=== PATIENT | female | born 1975 | race Caucasian/White ===

== ENCOUNTER 2021-12-05 11:12 | Emergency (ER) | payer MEDICAID, SELFPAY ==
[2021-12-05 11:23] VITALS: BP 114/35; PULSE 95; RESP 20; TEMP 36.6; O2SAT 96; BMI 40.4
--- NOTE | 2021-12-05 11:36 | ED.GENADULT ---
HPI - General Adult General Chief complaint: Allergic Reaction Stated complaint: Allergic reaction, rash all over Time Seen by Provider: 12/05/21 11:12 History of Present Illness HPI narrative: Tommy is a 46-year-old female patient presents emergency department via POV with complaints of rash that began beneath the right axilla without known exposure but now is noted beneath bilateral axilla, underneath bilateral breasts, across her abdomen, and at the base of her neck. Exact timeline of symptoms is unknown. Patient reports that she has been seen and evaluated for this complaint approximately 1 week prior and was given triamcinolone topical cream to apply. She reports initially the symptoms improved. However, she reports that the symptoms have worsened with the spreading as previously noted. She denies shortness of breath, lip or tongue swelling, or chest pain. She denies nausea, vomiting, or diarrhea. She denies abdominal pain. She reports that the rash is itchy. She denies a blister appearance. The patient denies similar symptoms in any close contacts. The patient has had no travel exposure. The patient also denies any new creams, soaps, detergents, or food exposures. See nursing notes for complete details. Related Data Home Medications Medication Instructions Recorded Confirmed duloxetine 30 mg capsule,delayed 60 mg PO QDAY cap 11/25/21 11/25/21 release lamotrigine 100 mg tablet 50 mg PO QDAY tab 11/25/21 11/25/21 spironolactone 50 mg tablet 150 mg PO QDAY tab 11/25/21 11/25/21 trazodone 100 mg tablet 300 mg PO QDAY tab 11/25/21 11/25/21 zolpidem 5 mg tablet 5 mg PO .HS tab 11/25/21 11/25/21 Previous Rx's Medication Instructions Recorded triamcinolone acetonide 0.1 % 1 applic TOPICAL BID #30 g 11/25/21 topical cream prednisone 10 mg tablets in a dose See Rx Instructions .ROUTE 12/05/21 pack .COMPLEX #21 ea Allergies Allergy/AdvReac Type Severity Reaction Status Date / Time house dust Allergy Verified 12/05/21 11:22 dogs Allergy Mild Uncoded 12/05/21 11:22 pine trees Allergy Uncoded 12/05/21 11:22 Review of Systems Const: Denies: fever, chills, fatigue or malaise ENMT: Reports: nasal congestion; Denies: throat pain, neck pain, swelling of lips/tongue or ear pain Cardio: Denies: chest pain, palpitations, shortness of breath with exertion or shortness of breath when lying down Resp: Denies: shortness of breath or wheezing GI: Denies: abdominal pain, nausea or vomiting Musculo: Denies: neck pain Integ/Breast: Reports: rash and itching Neuro: Denies: headache Psych: Denies: anxiety or mood swings Endo: Denies: fatigue Allergy/Immuno: Denies: wheezing PFSH PFSH Social History Smoking Status: Never smoker Do you use any of these nicotine containing products: Vaping Products Second hand tobacco smoke exposure: No How often do you have a drink containing alcohol: 2-4 times a month How often do you have six or more drinks on one occasion: Weekly AUDIT-C Alcohol total score: 5 Non-prescribed substance use: marijuana (any form) Exam Const: Vital Signs, click to edit/add: Vital Signs - 24 hr 12/05/21 11:23 12/05/21 12:30 12/05/21 12:42 Temperature 97.8 F Pulse Rate [Pulse Oximeter] 95 67 66 Respiratory Rate 20 Blood Pressure [Ri ght Upper Arm] 114/35 L 119/79 118/79 Pulse Oximetry 96 98 98 Documenting provider has reviewed patient's vital signs: yes Common normals: no apparent distress, oriented x3, healthy appearing and alert General appearance: cooperative and well developed Nutritional appearance: obese Orientation/consciousness: Yes awake, Yes oriented to person, Yes oriented to place and Yes oriented to time HENMT: Common normals: normocephalic, head/scalp atraumatic, moist oral mucous membranes and oropharynx normal Head and scalp: normocephalic and atraumatic Neck & C-Spine: Common normals: full ROM and no lymphadenopathy Lymph: Lymphatic: no lymphadenopathy noted Resp: Common normals: normal respiratory effort, no use of accessory muscles and clear to auscultation bilaterally Auscultation: clear to auscultation bilaterally Cardio: Common normals: regular rate, regular rhythm, S1 normal heart sound and S2 normal heart sound Rate: regular rate Rhythm: regular rhythm Heart sounds: S1 normal and S2 normal Extremity: Common normals: normal to inspection, full ROM and no clubbing, cyanosis or edema Neuro: Common normals: oriented x3, moves all extremities and no focal motor deficits Sensorium/orientation: awake, alert, oriented to person, oriented to place and oriented to time Gait (neuro): normal gait Psych: Common normals: mental status grossly normal, thought process normal, cooperative, affect normal, speech normal and activity/motor behavior normal Speech: normal speech Thought process: normal thought process Skin: Narrative: No obvious herald patch. Skin images (female): 1. erythematous, blanchable macular rash 2. erythematous, blanchable macular rash 3. erythematous, blanchable macular rash 4. erythematous, blanchable macular rash Course Reevaluation(s) Reevaluation #1: Patient noted to have improvement after treatment. Plan for discharge and close outpatient follow-up as needed. Vital Signs Vital signs: Initial Vital Signs Temperature 97.8 F 12/05/21 11:23 Temperature Source Temporal Artery Scan 12/05/21 11:23 Pulse Rate 95 12/05/21 11:23 Pulse Rhythm 12/05/21 11:23 Respiratory Rate 20 12/05/21 11:23 Blood Pressure 114/35 L 12/05/21 11:23 Blood Pressure Mean 61 12/05/21 11:23 Pulse Oximetry 96 12/05/21 11:23 Oxygen Delivery Method 12/05/21 11:23 Vital Signs Temperature 97.8 F 12/05/21 11:23 Pulse Rate 95 12/05/21 11:23 Respiratory Rate 20 12/05/21 11:23 Blood Pressure 114/35 L 12/05/21 11:23 Pulse Oximetry 96 12/05/21 11:23 Temperature 97.8 F 12/05/21 11:23 Pulse Rate 66 12/05/21 12:42 Respiratory Rate 20 12/05/21 11:23 Blood Pressure 118/79 12/05/21 12:42 Pulse Oximetry 98 12/05/21 12:42 Medical Decision Making Lab Data Labs: Lab Results 12/05/21 Range/Units 11:46 SARS-CoV-2 (PCR) Negative SARS-CoV-2 (Negative) Discharge Plan Discharge Clinical Impression: Dermatitis Patient Disposition: Home, Self-Care Condition: Improved Instructions: Dermatitis (ED) Additional Instructions: Thank you for choosing [facility] for your care today. Wash, as desired, at least every other day. Please make sure to get the area dry after washing. Avoid perfumes, creams, or deodorants while outbreak present. The patient is encouraged to use OTC Benadryl, or substitute, per package directions, scheduled for the next 24-48hrs. The patient is advised to also take Pepcid, or substitute, one tab daily. The patient is advised may use ice or cool shower, as needed, for symptom control. Finally, the patient is given steroids and is advised to start them tomorrow. In addition, patient is given anticipatory guidance regarding signs and symptoms of worsening condition. I recommend calling primary care for follow-up in the next 3-5 days. If new or worsening symptoms develop or you have any concerns in the meantime, please call your primary care clinic or return to the ER for re-evaluation. Prescriptions: New prednisone 10 mg tablets,dose pack See Rx Instructions .ROUTE .COMPLEX Qty: 21 0RF Rx Instructions: orally per package directions No Action trazodone 100 mg tablet 300 mg PO QDAY 0RF Label Comments: TAKE 2 TO 3 TABLETS BY MOUTH AT BEDTIME NEEDED FOR SLEEP lamotrigine 100 mg tablet 50 mg PO QDAY 0RF Label Comments: TAKE 1 TABLET BY MOUTH EVERY MORNING zolpidem 5 mg tablet 5 mg PO .HS 0RF Label Comments: TAKE 1 TABLET BY MOUTH AT BEDTIME NEEDED FOR SLEEP duloxetine 30 mg capsule,delayed release(DR/EC) 60 mg PO QDAY 0RF spironolactone 50 mg tablet 150 mg PO QDAY 0RF triamcinolone acetonide 0.1 % cream 1 applic topical BID Qty: 30 0RF Follow Up/Referrals: Provider,Not a Local [Primary Care Provider] - Stand Alone Forms: [employer] Info Instructions
[2021-12-05] MEDS: METHYLPREDNISOLONE SOD SUCC 40 MG/ML 80 MG IVP (12:15)
[2021-12-05] MEDS: diphenhydrAMINE 50 MG/ML inj 25 MG IVP (12:21)
[2021-12-05] MEDS: FAMOTIDINE 10 MG/ML inj 20 MG IVP (12:26)
[2021-12-05 12:30] VITALS: BP 119/79; PULSE 67; O2SAT 98
[2021-12-05 12:42] VITALS: BP 118/79; PULSE 66; O2SAT 98
[2021-12-05 15:33] LABS: SARS PCR* Negative SARS-CoV-2 (Negative)
--- NOTE | 2021-12-05 15:36 | ED.NURSE ---
Patient calling to note that Kristin Banuelos (Marco Craven) does not have a prednisone dosepak. Clarified with Dr. Grimm on prescription instructions. She wants patient to have the following prednisone taper: Day 1: 60mg po x1 Day 2: 50mg po x1 Day 3: 40mg po x1 Day 4: 30mg po x1 Day 5: 20mg po x1 Day 6: 10mg po x1 Attempted to speak with Kristin pharmacist to clarify, but she reports she was too busy to take prescription information. Pharmacist advised I call back and leave a detailed message, which I have done.
== END 2021-12-05 13:50 | disposition home or self-care (01) ==
PROVIDERS: Emergency Provider Family Medicine
DX: L30.9 Dermatitis, unspecified (principal)
CPT/HCPCS: 87635; 96374; 96375; 99283; 99284; J1200; J2920; S0028

== ENCOUNTER 2021-12-18 07:35 | Outpatient (CLI) | payer MEDICAID, SELFPAY ==
[2021-12-18 13:48] LABS: Albumin* 4.5 g/dL (3.3-5.0); Chloride* 103 mmol/L (96-114)
[2021-12-18 13:49] LABS: Potassium* 3.9 mmol/L (3.6-5.1); Sodium* 141 mmol/L (135-149)
[2021-12-18 13:51] LABS: Bilirubin Total* 0.3 mg/dL (0.1-1.5); Creatinine* 0.9 mg/dL (0.5-1.5); Estimated Glomerular Filt Rate 79 ml/min
[2021-12-18 13:52] LABS: Alanine Aminotransferase* 25 U/L (4-35); Alkaline Phosphatase* 80 U/L (40-150); Aspartate Amino Transferase* 23 U/L (12-35); Blood Urea Nitrogen* 20 mg/dL (5-24); Calcium* 9.6 mg/dL (8.4-10.6); Carbon Dioxide* 27 mmol/L (20-32); Glucose* 103 mg/dL (60-115); Total Protein* 7.2 g/dL (6.0-8.3)
[2021-12-18 13:55] LABS: C Reactive Protein* 1.8 mg/dL (0.5-1.0)
[2021-12-18 15:09] LABS: Free T4 Free Thyroxine* 0.99 ng/dL (0.70-1.85)
== END 2021-12-18 07:36 | disposition home or self-care (01) ==
PROVIDERS: Visit Provider Family Medicine
DX: L30.9 Dermatitis, unspecified (principal); R21 Rash and other nonspecific skin eruption
CPT/HCPCS: 80053; 84439; 84443; 86140

== ENCOUNTER 2022-02-04 10:38 | Outpatient (CLI) | payer MEDICAID, SELFPAY ==
[2022-02-08 23:47] LABS: Prolactin 10.2 ng/mL (2.8-29.2)
== END 2022-02-04 10:39 | disposition home or self-care (01) ==
PROVIDERS: PCP Physician Assistant Medical; Visit Provider Physician Assistant Medical
DX: E03.8 Other specified hypothyroidism (principal); N64.52 Nipple discharge; I10 Essential (primary) hypertension; F41.9 Anxiety disorder, unspecified
CPT/HCPCS: 84146; 84443

== ENCOUNTER 2022-02-11 10:46 | Outpatient (CLI) | payer MEDICAID, SELFPAY ==
--- NOTE | 2022-02-11 10:45 | CRLHL7_ITS ---
For Patients: As a result of the Century Cures Act, medical imaging exams and procedure reports are released immediately into your electronic medical record. You may view this report before your referring provider. If you have questions, please contact your health care provider. BILATERAL DIAGNOSTIC MAMMOGRAM WITH COMPUTER-AIDED DETECTION AND TOMOSYNTHESIS BILATERAL BREAST ULTRASOUND CLINICAL HISTORY: 46-year-old with BILATERAL nipple discharge, white on the LEFT with expression, and on the RIGHT, described as white; sometimes and also brown at other times. TECHNIQUE: These mammographic images have been obtained using full-field digital technique. These mammographic images were interpreted with the benefit of computer-aided detection. Breast Tomosynthesis was used in this interpretation. COMPARISON FILM: 10/10/2013, 11/10/2013. BREAST COMPOSITION: The breasts are heterogeneously dense, which may obscure small masses. FINDINGS: No mammographic findings for malignancy. BILATERAL retroareolar ultrasound demonstrates normal underlying soft tissues. No suspicious findings. No dilated ducts or intraductal mass. IMPRESSION: No mammographic or sonographic findings for malignancy. Breast surgical consultation recommended for RIGHT-sided nipple discharge, brown in color, and sometimes white. ASSESSMENT: BI-RADS Category 2: Benign RECOMMENDATION: Recommend continuing with yearly screening mammography. A lay language report of this examination will be provided to the patient. Jimena Cuadra M.D. Diagnostic/Breast Radiologist [email or web address] RAYSAP/tomy PT/Dictated by: Jimena Cuadra MD @ 02/11/2022 12:00:00 PM (Electronically Signed)
--- NOTE | 2022-02-11 11:15 | CRLHL7_ITS ---
For Patients: As a result of the Century Cures Act, medical imaging exams and procedure reports are released immediately into your electronic medical record. You may view this report before your referring provider. If you have questions, please contact your health care provider. PLEASE SEE BILATERAL DIAGNOSTIC MAMMOGRAM OF SAME DAY. CRL:tomy PT/Dictated by: Jimena Cuadra MD @ 02/11/2022 1:51:00 PM (Electronically Signed)
== END 2022-02-11 10:47 | disposition home or self-care (01) ==
LOC: MAMMO 10:46
PROVIDERS: PCP Physician Assistant Medical; Visit Provider Physician Assistant Medical
DX: N64.52 Nipple discharge (principal); R92.2 Inconclusive mammogram
CPT/HCPCS: 76642; 77066; G0279

== ENCOUNTER 2023-03-24 13:16 | Outpatient (CLI) | payer MEDICAID, SELFPAY | END 2023-03-24 13:17 | disposition home or self-care (01) | LOC: NFLDREF 03-27 13:37 | PROVIDERS: PCP Physician Assistant Medical; Referring Provider Physician Assistant Medical; Visit Provider Physician Assistant Medical | DX: Z00.00 Encounter for general adult medical examination without abnormal findings (principal); E03.8 Other specified hypothyroidism; I10 Essential (primary) hypertension; F41.9 Anxiety disorder, unspecified; Z13.6 Encounter for screening for cardiovascular disorders | CPT/HCPCS: 80053; 80061; 84443 ==

== ENCOUNTER 2023-10-01 14:26 | Emergency (ER) | payer MEDICAID, SELFPAY ==
[2023-10-01] VITALS (13 sets, daily range): BP systolic 134–137; BP diastolic 83–91; PULSE 73–88; RESP 18; TEMP 36.4; O2SAT 98–100; BMI 28.2
--- NOTE | 2023-10-01 14:51 | ED_ITS ---
HPI - SOB/Dyspnea General Time Seen by Provider: 14:52 <Ness Mccann MD - Last Filed: 10/03/23 21:40> Date Seen: 10/01/23 <Ness Mccann MD - Last Filed: 10/03/23 21:40> Chief Complaint: Shortness of Breath/Dyspnea <Ness Mccann MD - Last Filed: 10/03/23 21:40> Stated Complaint: Shortness of breath <Ness Mccann MD - Last Filed: 10/03/23 21:40> Time Seen by Provider: 10/01/23 14:27 <Ness Mccann MD - Last Filed: 10/03/23 21:40> Source: patient and RN notes reviewed <Ness Mccann MD - Last Filed: 10/03/23 21:40> Mode of arrival: ambulatory <Ness Mccann MD - Last Filed: 10/03/23 21:40> Limitations: no limitations <Ness Mccann MD - Last Filed: 10/03/23 21:40> History of Present Illness HPI Narrative: This 48-year-old female is ambulatory into the ED with a constellation of symptoms. She is feeling short of breath, feeling like she can not get enough air. She is awakening reportedly gasping at night. She does have those obstructive sleep apnea in her devices about 7 years old. She is cleaning her device. She does have hypothyroidism, complains of feeling cold and constipated in believes her TSH has been over a year since checked. Looking in her records her TSH was normal in March of 2023 at 1.77. She will get intermittent chest pain it will go from right upper chest to the left chest, will be sharp. She has a fluttery feeling in her chest, ringing sensation in her neck. She does have underlying anxiety in fibromyalgia, hypothyroidism, obstructive sleep apnea. She has not had any recent surgery, no leg swelling, is not on any contraceptives, no prior history of blood clots. Patient states she did quit smoking marijuana because of this, had been smoking daily. Her symptoms have been present over a week. <Ness Mccann MD - Last Filed: 10/03/23 21:40> Related Data Home oxygen amount: none <Ness Mccann MD - Last Filed: 10/03/23 21:40> Home Medications: Home Medications ?Medication ?Instructions ?Recorded ?Confirmed lamotrigine 100 mg tablet 50 mg PO QDAY 11/25/21 10/01/23 trazodone 100 mg tablet 300 mg PO QDAY 11/25/21 10/01/23 zolpidem 5 mg tablet 5 mg PO .HS 11/25/21 10/01/23 duloxetine 20 mg capsule,delayed 20 mg PO DAILY 03/24/23 03/24/23 release duloxetine 60 mg capsule,delayed 60 mg PO DAILY 03/24/23 03/24/23 release propranolol 10 mg tablet 10 mg PO BID 03/24/23 03/24/23 duloxetine PO 10/01/23 lorazepam .ROUTE 10/01/23 pregabalin 50 mg capsule 50 mg PO 3XD 10/01/23 10/01/23 Previous Rx's ?Medication ?Instructions ?Recorded hydroxyzine pamoate 25 mg capsule 25 mg PO Q8H PRN itching #60 caps 12/18/21 (Vistaril) triamcinolone acetonide 0.1 % 1 applic topical BID #453.6 grams 12/18/21 topical ointment ketoconazole 2 % topical cream 1 applic topical BID #30 grams 02/04/22 levothyroxine 50 mcg tablet 50 mcg PO QDAY #90 tabs 03/25/23 methylprednisolone 4 mg tablets in See Rx Instructions PO .COMPLEX 10/01/23 a dose pack (Medrol (Ankur)) #21 ea <Ness Mccann MD - Last Filed: 10/03/23 21:40> Allergies/Adverse Reactions: Allergies Allergy/AdvReac Type Severity Reaction Status Date / Time house dust Allergy Verified 10/01/23 14:38 dogs Allergy Mild Uncoded 03/24/23 12:40 pine trees Allergy Uncoded 03/24/23 12:40 <Ness Mccann MD - Last Filed: 10/03/23 21:40> Review of Systems Status of ROS: Reports: 6 or more systems reviewed and unremarkable except as noted in History and below <Ness Mccann MD - Last Filed: 10/03/23 21:40> [facility] Medical History: Medical History Urinary tract infection ?N39.0 - Urinary tract infection, site not specified (ICD-10) Asthma ?J45.909 - Unspecified asthma, uncomplicated (ICD-10) <Ness Mccann MD - Last Filed: 10/03/23 21:40> Surgical History: Surgical History History of colonoscopy ?Z98.890 - Other specified postprocedural states (ICD-10) History of biopsy ?Z98.890 - Other specified postprocedural states (ICD-10) History of tympanostomy ?Z98.890 - Other specified postprocedural states (ICD-10) History of tubal ligation ?Z98.51 - Tubal ligation status (ICD-10) History of cholecystectomy ?Z90.49 - Acquired absence of other specified parts of digestive tract (ICD- 10) History of 3 sections ?Z98.891 - History of uterine scar from previous surgery (ICD-10) <Ness Mccann MD - Last Filed: 10/03/23 21:40> Social History: Social History What is your current living situation?: I presently have a place to live Problems where you live: no known problems In the past 12 months, utilities in danger of being shut off: no In past 12 months, lack of transportation kept you from medical appts, meetings, work, or getting things needed for daily living: no In the past 12 mos, have been you worried that your food would run out before you had money to buy more?: never true In the past 12 mos, the food you bought just didn't last and you didn't have money to buy more?: never true Smoking Status: Current some day smoker Do you use any of these nicotine containing products: Vaping Products Second hand tobacco smoke exposure: No How often do you have a drink containing alcohol: 2-4 times a month How often do you have six or more drinks on one occasion: Weekly AUDIT-C Alcohol total score: 5 Non-prescribed substance use: marijuana (any form) How often does anyone, including family, friends and others, physically hurt you : never How often does anyone, including family, friends and others, insult or talk down to you: never How often does anyone, including family, friends and others, threaten you with harm: never How often does anyone, including family, friends and others, scream or curse at you: never Little interest or pleasure in doing things: nearly every day Feeling down, depressed, or hopeless: nearly every day <Ness Mccann MD - Last Filed: 10/03/23 21:40> Exam Const: Vital Signs, click to edit/add: Vital Signs - 24 hr 10/01/23 14:38 10/01/23 14:55 Temperature 97.6 F Pulse Rate [Pulse Oximeter] 87 Respiratory Rate 18 Blood Pressure [Ri ght Upper Arm] 137/91 H Pulse Oximetry 99 100 Oxygen Delivery Me thod Room Air 48-year-old female is alert, interactive , no apparent distress. Does seem mildly anxious. Sclera clear, conjugate gaze, symmetrical facial function. Note no adenopathy, no thyromegaly masses or nodules. No jugular venous distension noted. Do not hear carotid bruit. Lungs are clear, good air entry, no wheezing crackles, no tachypnea. CV regular rate and rhythm, no murmur, normal S1-S2, no S3-S4. Abdomen is soft, no rebound or guarding, no organomegaly. She has no lower extremity edema. Skin visualized out any rash. Patient was ambulatory into the ED of her own accord. <Ness Mccann MD - Last Filed: 10/03/23 21:40> Vital Signs, click to edit/add: Vital Signs - 24 hr 10/01/23 14:38 10/01/23 14:55 Temperature 97.6 F Pulse Rate [Pulse Oximeter] 87 Respiratory Rate 18 Blood Pressure [Ri ght Upper Arm] 137/91 H Pulse Oximetry 99 100 Oxygen Delivery Me thod Room Air <Jamie Yu MD - Last Filed: 10/01/23 17:46> Documenting provider has reviewed patient's vital signs: yes <Ness Mccann MD - Last Filed: 10/03/23 21:40> Course Course ED Course: Patient will be on cardiac monitoring and pulse oximetry. Currently her O2 sats are excellent, appears to be in a sinus rhythm, will confirm with an EKG. Will get a full complement of labs. Will recheck her TSH. She is aware that we may discharge refer the TSH is back and can follow up with her primary clinic to get the results. This could be anxiety, could be complications of her sleep apnea, did discuss having her machine and sleep apnea rechecked. She is very unlikely to have pulmonary emboli, is PERC rule negative. Doubt this to be underlying cardiac disease but troponin and EKG will be obtained. She can pursue outpatient cardiac testing if felt indicated by her primary provider on follow-up. Obviously if troponin or EKG are concerning, will act accordingly. Doubt that this represents anything infectious. <Ness Mccann MD - Last Filed: 10/03/23 21:40> Vital Signs Vital signs: Initial Vital Signs Temperature 97.6 F 10/01/23 14:38 Temperature Source Temporal Artery Scan 10/01/23 14:38 Pulse Rate 87 10/01/23 14:38 Respiratory Rate 18 10/01/23 14:38 Blood Pressure 137/91 H 10/01/23 14:38 Blood Pressure Mean 106 H 10/01/23 14:38 Blood Pressure Position Semi-Fowlers 10/01/23 14:38 Pulse Oximetry 99 10/01/23 14:38 Oxygen Delivery Method Room Air 10/01/23 14:38 Vital Signs Temperature 97.6 F 10/01/23 14:38 Pulse Rate 87 10/01/23 14:38 Respiratory Rate 18 10/01/23 14:38 Blood Pressure 137/91 H 10/01/23 14:38 Pulse Oximetry 99 10/01/23 14:38 Oxygen Delivery Method Room Air 10/01/23 14:38 Temperature 97.6 F 10/01/23 14:38 Pulse Rate 80 10/01/23 17:30 Respiratory Rate 18 10/01/23 14:38 Blood Pressure 134/83 10/01/23 15:02 Pulse Oximetry 99 10/01/23 17:30 Oxygen Delivery Method Room Air 10/01/23 14:38 <Ness Mccann MD - Last Filed: 10/03/23 21:40> Initial Vital Signs Temperature 97.6 F 10/01/23 14:38 Temperature Source Temporal Artery Scan 10/01/23 14:38 Pulse Rate 87 10/01/23 14:38 Respiratory Rate 18 10/01/23 14:38 Blood Pressure 137/91 H 10/01/23 14:38 Blood Pressure Mean 106 H 10/01/23 14:38 Blood Pressure Position Semi-Fowlers 10/01/23 14:38 Pulse Oximetry 99 10/01/23 14:38 Oxygen Delivery Method Room Air 10/01/23 14:38 Vital Signs Temperature 97.6 F 10/01/23 14:38 Pulse Rate 87 10/01/23 14:38 Respiratory Rate 18 10/01/23 14:38 Blood Pressure 137/91 H 10/01/23 14:38 Pulse Oximetry 99 10/01/23 14:38 Oxygen Delivery Method Room Air 10/01/23 14:38 Temperature 97.6 F 10/01/23 14:38 Pulse Rate 80 10/01/23 17:30 Respiratory Rate 18 10/01/23 14:38 Blood Pressure 134/83 10/01/23 15:02 Pulse Oximetry 99 10/01/23 17:30 Oxygen Delivery Method Room Air 10/01/23 14:38 <Jamie Yu MD - Last Filed: 10/01/23 17:46> MDM - SOB/Dyspnea MDM Narrative Medical decision making narrative: Care for this patient was transferred to ct at the end of Dr. Pino's s hift. Lab results and x-ray imaging returned with reassuring findings. The patient is stating that she has symptoms usually at night and occasionally does get benefit by using an albuterol inhaler. More recently she has not been getting such benefit. She is wondering if something is in her home that she may be reacting to his she feels better while she is here now yet not having received any particular treatment. Patient states that she does smoke marijuana but has not done so in the last week. She does this because it seems to help her with her depression symptoms. She does have a CPAP machine that is she has used for the 7 years and has not had any checkup in this regard. The machine itself may be old enough where it is triggering allergens or some stimulus to cause shortness of breath at night. The patient did receive an oral dose of dexamethasone 10 mg here. I did also provide a Medrol Dosepak as a prescription. She does have sufficient albuterol and is encouraged to use it as needed. She is advised to follow-up with her primary physician to re-evaluate her CPAP machine and recheck her symptoms after these treatments. <Jamie Yu MD - Last Filed: 10/01/23 17:46> Lab Data Labs: Lab Results 10/01/23 Range/Units 15:32 WBC 7.17 (4.50-11.00) K/uL RBC 4.37 (4.00-5.20) m/uL Hgb 13.8 (12.0-16.0) gm/dL Hct 39.9 (33.0-51.0) % MCV 91 (80-100) fL MCH 32 (26-34) pg MCHC 35 (32-36) gm/dL RDW Coeff of Era 12.6 (11.5-15.5) % Plt Count 268 (140-440) K/uL Neut % (Auto) 66.9 (42.0-72.0) % Lymph % (Auto) 24.5 (20-44) % Centre % (Auto) 6.7 (0.0-11.0) % Eos % (Auto) 0.8 (0.0-7.0) % Baso % (Auto) 0.3 (0.0-3.0) % Neut # (Auto) 4.79 (1.7-7.0) K/uL Lymph # (Auto) 1.76 (0.90-2.90) K/uL Centre # (Auto) 0.50 (0.00-0.90) K/UL Eos # (Auto) 0.06 (0.00-0.50) K/uL Baso # (Auto) 0.02 (0.00-0.30) K/uL Abs Immat Gran (auto) 0.06 (0.00-0.30) K/uL Imm/Tot Granulo (auto) 0.8 % VBG pH 7.498 H (7.32-7.43) VBG pCO2 25 L (40-50) mmHG VBG pO2 30.9 (25-47) mmHG VBG HCO3 19 L (21-28) mmol/L Sodium 138 (135-149) mmol/L Potassium 3.8 (3.6-5.1) mmol/L Chloride 107 (96-114) mmol/L Carbon Dioxide 18 L (20-32) mmol/L Anion Gap 13 (7-15) mEq/L BUN 14 (5-24) mg/dL Creatinine 0.8 (0.5-1.5) mg/dL Estimated Creat Clear 82.72 Estimated GFR 90 ml/min Glucose 70 (60-115) mg/dL Calcium 10.0 (8.4-10.6) mg/dL Total Bilirubin 0.7 (0.1-1.5) mg/dL AST 29 (12-35) U/L ALT 20 (4-35) U/L Alkaline Phosphatase 90 (40-150) U/L Troponin I < 0.01 L (0.01-0.04) ng/mL NT-Pro-B Natriuret Pep 25 pg/mL Total Protein 8.7 H (6.0-8.3) g/dL Albumin 5.2 H (3.3-5.0) g/dL TSH 1.410 (0.270-4.200) uIU/mL <Ness Mccann MD - Last Filed: 10/03/23 21:40> Lab Results 10/01/23 Range/Units 15:32 WBC 7.17 (4.50-11.00) K/uL RBC 4.37 (4.00-5.20) m/uL Hgb 13.8 (12.0-16.0) gm/dL Hct 39.9 (33.0-51.0) % MCV 91 (80-100) fL MCH 32 (26-34) pg MCHC 35 (32-36) gm/dL RDW Coeff of Era 12.6 (11.5-15.5) % Plt Count 268 (140-440) K/uL Neut % (Auto) 66.9 (42.0-72.0) % Lymph % (Auto) 24.5 (20-44) % Centre % (Auto) 6.7 (0.0-11.0) % Eos % (Auto) 0.8 (0.0-7.0) % Baso % (Auto) 0.3 (0.0-3.0) % Neut # (Auto) 4.79 (1.7-7.0) K/uL Lymph # (Auto) 1.76 (0.90-2.90) K/uL Centre # (Auto) 0.50 (0.00-0.90) K/UL Eos # (Auto) 0.06 (0.00-0.50) K/uL Baso # (Auto) 0.02 (0.00-0.30) K/uL Abs Immat Gran (auto) 0.06 (0.00-0.30) K/uL Imm/Tot Granulo (auto) 0.8 % VBG pH 7.498 H (7.32-7.43) VBG pCO2 25 L (40-50) mmHG VBG pO2 30.9 (25-47) mmHG VBG HCO3 19 L (21-28) mmol/L Sodium 138 (135-149) mmol/L Potassium 3.8 (3.6-5.1) mmol/L Chloride 107 (96-114) mmol/L Carbon Dioxide 18 L (20-32) mmol/L Anion Gap 13 (7-15) mEq/L BUN 14 (5-24) mg/dL Creatinine 0.8 (0.5-1.5) mg/dL Estimated Creat Clear 82.72 Estimated GFR 90 ml/min Glucose 70 (60-115) mg/dL Calcium 10.0 (8.4-10.6) mg/dL Total Bilirubin 0.7 (0.1-1.5) mg/dL AST 29 (12-35) U/L ALT 20 (4-35) U/L Alkaline Phosphatase 90 (40-150) U/L Troponin I < 0.01 L (0.01-0.04) ng/mL NT-Pro-B Natriuret Pep 25 pg/mL Total Protein 8.7 H (6.0-8.3) g/dL Albumin 5.2 H (3.3-5.0) g/dL TSH 1.410 (0.270-4.200) uIU/mL <Jamie Yu MD - Last Filed: 10/01/23 17:46> Imaging Data Chest x-ray: My impression: This portable chest x-ray has no acute cardiopulmonary pathology on my preliminary review. Await Radiology over read. <Ness Mccann MD - Last Filed: 10/03/23 21:40> ECG Data Attestation: I personally reviewed and interpreted this ECG as follows: (Sinus rhythm, 77 beats per minute. Low-voltage QRS. No acute ischemic change noted. QT corrected 459 milliseconds.) <Ness Mccann MD - Last Filed: 10/03/23 21:40> ECG interpretation date: 10/01/23 <Ness Mccann MD - Last Filed: 10/03/23 21:40> ECG interpretation time: 15:31 <Ness Mccann MD - Last Filed: 10/03/23 21:40> Prior ECG tracings: not available for review <Ness Mccann MD - Last Filed: 10/03/23 21:40> Discharge Plan Discharge Clinical Impression: Intermittent chest pain, Shortness of breath <Ness Mccann MD - Last Filed: 10/03/23 21:40> Patient Disposition: Home, Self-Care <Ness Mccann MD - Last Filed: 10/03/23 21:40> Condition: Stable <Ness Mccann MD - Last Filed: 10/03/23 21:40> Instructions: Chest Pain (ED), Shortness of Breath (ED) <Ness Mccann MD - Last Filed: 10/03/23 21:40> Additional Instructions: Need to schedule a follow-up in clinic with your primary provider within the next 1-2 weeks. I do think that your obstructive sleep apnea and your CPAP need to be addressed again. Sleep apnea can change with time, machines can malfunction. <Ness Mccann MD - Last Filed: 10/03/23 21:40> Prescriptions: New methylprednisolone [Medrol (Ankur)] 4 mg tablets,dose pack See Rx Instructions .ROUTE .COMPLEX Qty: 21 0RF Rx Instructions: orally per package directions No Action trazodone 100 mg tablet 300 mg PO QDAY Patient Comments: TAKE 2 TO 3 TABLETS BY MOUTH AT BEDTIME NEEDED FOR SLEEP lamotrigine 100 mg tablet 50 mg PO QDAY Patient Comments: TAKE 1 TABLET BY MOUTH EVERY MORNING zolpidem 5 mg tablet 5 mg PO .HS Patient Comments: TAKE 1 TABLET BY MOUTH AT BEDTIME NEEDED FOR SLEEP ketoconazole 2 % cream 1 applic topical BID Qty: 30 0RF triamcinolone acetonide 0.1 % ointment 1 applic topical BID Qty: 453.6 0RF hydroxyzine pamoate [Vistaril] 25 mg capsule 25 mg PO Q8H PRN (Reason: itching) Qty: 60 1RF duloxetine 60 mg capsule,delayed release(DR/EC) 60 mg PO DAILY duloxetine 20 mg capsule,delayed release(DR/EC) 20 mg PO DAILY propranolol 10 mg tablet 10 mg PO BID duloxetine [Cymbalta] PO pregabalin 50 mg capsule 50 mg PO 3XD lorazepam [Lorazepam Intensol] .ROUTE levothyroxine 50 mcg tablet 50 mcg PO QDAY Qty: 90 3RF <Ness Mccann MD - Last Filed: 10/03/23 21:40> Follow Up/Referrals: Bertha Wilks, PAValencia[facility] [Primary Care Provider] - <Ness Mccann MD - Last Filed: 10/03/23 21:40> Stand Alone Forms: [employer] [employer] Info Instructions <Ness Mccann MD - Last Filed: 10/03/23 21:40> Discharge Comment: Pt left prior to receiving PO dexamethasone. Dr. Yu notified. <Ness Mccann MD - Last Filed: 10/03/23 21:40> Pt left prior to receiving PO dexamethasone. Dr. Yu notified. <Jaime Yu MD - Last Filed: 10/01/23 17:46>
--- NOTE | 2023-10-01 15:20 | CRLHL7_ITS ---
For Patients: As a result of the Cures Act, medical imaging exams and procedure reports are released immediately into your electronic medical record. You may view this report before your referring provider. If you have questions, please contact your health care provider. INDICATION: Shortness of breath. TECHNIQUE: Chest 1 view(s) COMPARISON: None. FINDINGS: Cardiomediastinal silhouette and pulmonary vasculature are normal. No focal consolidation. No layering pleural effusion. No pneumothorax. No acute chest wall abnormality. IMPRESSION: No focal consolidation. Dictated by Gabriella Arevalo MD @ 10/01/2023 4:19:40 PM (Electronically Signed)
[2023-10-01 15:49] LABS: Basophils Absolute Auto 0.02 K/uL (0.00-0.30); Basophils Percent Auto 0.3 % (0.0-3.0); Eosinophils Absolute Auto 0.06 K/uL (0.00-0.50); Eosinophils Percent Auto 0.8 % (0.0-7.0); Hematocrit 39.9 % (33.0-51.0); Hemoglobin* 13.8 gm/dL (12.0-16.0); Immature Granulocytes Abs Auto 0.06 K/uL (0.00-0.30); Immature Granulocytes Pct Auto 0.8 %; Lymphocytes Absolute Auto 1.76 K/uL (0.90-2.90); Lymphocytes Percent Auto 24.5 % (20-44); Mean Corpuscular HGB Conc 35 gm/dL (32-36); Mean Corpuscular Hemoglobin 32 pg (26-34); Mean Corpuscular Volume 91 fL (80-100); Monocytes Percent Auto 6.7 % (0.0-11.0); Neutrophils Absolute Auto 4.79 K/uL (1.7-7.0); Neutrophils Percent Auto 66.9 % (42.0-72.0); Platelet Count* 268 K/uL (140-440); RDW Coefficient of Variation % 12.6 % (11.5-15.5); Red Blood Count 4.37 m/uL (4.00-5.20); White Blood Count* 7.17 K/uL (4.50-11.00)
[2023-10-01 16:05] LABS: HCO3 VBG 19 mmol/L (21-28); PCO2 VBG 25 mmHG (40-50); PO2 VBG 30.9 mmHG (25-47); pH VBG 7.498 (7.32-7.43)
[2023-10-01 16:22] LABS: Slide Review Reflex No
[2023-10-01 16:25] LABS: NT Pro B Type NatriureticPept* 25 pg/mL
[2023-10-01 16:38] LABS: Albumin* 5.2 g/dL (3.3-5.0)
[2023-10-01 16:39] LABS: Chloride* 107 mmol/L (96-114); Potassium* 3.8 mmol/L (3.6-5.1); Sodium* 138 mmol/L (135-149)
[2023-10-01 16:41] LABS: Bilirubin Total* 0.7 mg/dL (0.1-1.5); Creatinine* 0.8 mg/dL (0.5-1.5); Est. Creatinine Clearance* 82.72; Estimated Glomerular Filt Rate 90 ml/min
[2023-10-01 16:42] LABS: Alanine Aminotransferase* 20 U/L (4-35); Alkaline Phosphatase* 90 U/L (40-150); Anion Gap 13 mEq/L (7-15); Aspartate Amino Transferase* 29 U/L (12-35); Blood Urea Nitrogen* 14 mg/dL (5-24); Carbon Dioxide* 18 mmol/L (20-32); Total Protein* 8.7 g/dL (6.0-8.3)
[2023-10-01 16:46] LABS: Troponin I* < 0.01 ng/mL (0.01-0.04)
[2023-10-01 16:56] LABS: Glucose* 70 mg/dL (60-115)
== END 2023-10-01 17:55 | disposition home or self-care (01) ==
PROVIDERS: Family Medicine; Emergency Provider Emergency Medicine Emergency Medical Services; PCP Physician Assistant Medical
DX: R07.9 Chest pain, unspecified (principal)
CPT/HCPCS: 36415; 71045; 80053; 82803; 83880; 84443; 84484; 85025; 93005; 94761; 99284; 99285

== ENCOUNTER 2023-11-16 12:33 | Outpatient (CLI) | payer MEDICAID, SELFPAY ==
--- NOTE | 2023-11-16 13:00 | CRLHL7_ITS ---
For Patients: As a result of the Century Cures Act, medical imaging exams and procedure reports are released immediately into your electronic medical record. You may view this report before your referring provider. If you have questions, please contact your health care provider. INDICATION: Chronic sinusitis. TECHNIQUE: Noncontrast CT images of the paranasal sinuses. COMPARISON: None. FINDINGS: No air-fluid levels to suggest acute sinusitis. Minimal mucosal thickening in the maxillary sinuses. Ethmoid infundibula are widely patent. Mild mucosal thickening in the right frontal recess. The frontal sinuses are otherwise clear. Mild mucosal thickening in the right ethmoid air cells. The sphenoid sinuses and sphenoethmoidal recesses are clear. Mild leftward nasal septal deviation and small leftward directed septal spur. No nasal cavity masses. The mastoid air cells are clear. Moderate advanced bilateral temporomandibular joint degenerative changes. IMPRESSION: 1. Mild paranasal sinus mucosal disease. No air-fluid levels to suggest acute sinusitis. 2. Mild leftward nasal septal deviation and small leftward directed septal spur. Please note that all CT scans at this facility use dose modulation, iterative reconstruction, and/or weight-based dosing when appropriate to reduce radiation dose to as low as reasonably achievable. Dictated by Niraj Mesa MD @ 11/16/2023 1:56:10 PM (Electronically Signed)
== END 2023-11-16 12:34 | disposition home or self-care (01) ==
LOC: CT 12:33
PROVIDERS: PCP Physician Assistant Medical; Visit Provider Otolaryngology
DX: J32.9 Chronic sinusitis, unspecified (principal); J34.2 Deviated nasal septum
CPT/HCPCS: 70486

== ENCOUNTER 2024-01-29 08:32 | Day surgery (SDC) | payer MEDICAID, SELFPAY ==
[2024-01-29] VITALS (12 sets, daily range): BP systolic 110–129; BP diastolic 64–91; PULSE 69–91; RESP 16–18; TEMP 36.4–36.9; O2SAT 95–99; BMI 30.4
[2024-01-29] MEDS: LACTATED RINGERS 1000 ML 1,000 ML 100 ML IV (07:05)
[2024-01-29 09:22] LABS: Ur HCG Qualitative* Negative (Negative)
[2024-01-29] MEDS: SODIUM CHLORIDE 0.9 % (FLUSH) 10 ML SYRINGE IVF (09:28)
[2024-01-29] MEDS: OXYMETAZOLINE 0.05% NASAL SPRAY 2 SPRAY NOSTRIL-B (09:31)
[2024-01-29] MEDS: COCAINE HCL 4 % 4 ML SOLUTION NOSTRIL-B (10:48)
[2024-01-29] MEDS: AYR SALINE NASAL GEL 1 APPLIC NOSTRIL-B (10:48)
[2024-01-29] MEDS: BUPIVACAINE 0.5%/EPINEPHRINE 0.9 MG (30.9 ML) INJECTION (10:48)
[2024-01-29] MEDS: MUPIROCIN 1 GM PACKET 1 APPLIC TOPICAL (11:15)
--- NOTE | 2024-01-29 11:16 | W.PM.ENTPROC ---
Procedure Note Date of procedure: 01/29/24 Procedure: Preoperative diagnosis nasal obstruction, deviated septum bilateral, nasal headache, bilateral inferior turbinate hypertrophy Postoperative diagnosis same Procedure nasal septoplasty and submucous partial resection inferior turbinates bilateral Under general trach anesthesia patient was prepped and draped in usual fashion. The nose was decongested and injected. A right hemitransfixion incision was made left anterior and posterior tunnels were created right anterior posterior tunnels were created. A vertical incision was made in the bone septal cartilage anterior to the bony cartilaginous junction. The posterior deflected portions of septal bone resected a large piece was trimmed and returned to intraseptal space. An additional piece of cartilage was placed in the intraseptal space as well. The hemitransfixion was closed with 2 4-0 chromic sutures. Both middle turbinates were crushed with the [place] forceps. A stab incision was made in the anterior of the right inferior turbinate a tunnel created with a [place] dissector. The italo bone was outfractured in a very conservative anterior submucous resection performed. The Coblation was used for hemostasis and to cauterize intramurally along the inferior 10%. This was repeated on the left side in identical fashion. Silastic stents were secured on either side the septum with 3-0 nylon. Merocel packing so soaked in Bactroban was placed in each nasal cavity above the septal splints. Patient procedure well was taken recovery in satisfactory condition blood loss during procedure was less than 15 mL. Surgeon: Juan A Palmer MD
[2024-01-29] MEDS: fentaNYL 100 MCG/2 ML inj 50 MCG IVP ×2 (11:33→11:44)
[2024-01-29 11:38] LABS: Ferritin* 23.7 ng/mL (6.24-137.0)
[2024-01-29] MEDS: ACETAMINOPHEN 325 MG TABLET PO (12:00)
[2024-01-29] MEDS: OXYCODONE 5 MG TABLET PO (12:00)
--- NOTE | 2024-01-29 12:00 | W.ANESCHARGE ---
Anesthesia Charges Start Date/Time Anesthesia Start Date: 01/29/24 Anesthesia Start Time: 10:34 Stop Date/Time Anesthesia Stop Date: 01/29/24 Anesthesia Stop Time: 11:23
--- NOTE | 2024-01-29 13:40 | W.ANESCHARGE ---
Anesthesia Charges Start Date/Time Anesthesia Start Date: 01/29/24 Anesthesia Start Time: 10:34 Stop Date/Time Anesthesia Stop Date: 01/29/24 Anesthesia Stop Time: 11:23
== END 2024-01-29 13:43 | disposition home or self-care (01) ==
LOC: OR 08:33
PROVIDERS: Anesthesiology; PCP Physician Assistant Medical; Visit Provider Otolaryngology
PROC: (CPT 30520; principal; 2024-01-29 10:15)
DX: J34.2 Deviated nasal septum (principal); J34.3 Hypertrophy of nasal turbinates; R51.9 Headache, unspecified; J34.89 Other specified disorders of nose and nasal sinuses
CPT/HCPCS: 30520; 30140; 00160; 36415; 81025; 82728; A9270; J0330; J1100; J2405; J2704; J3010; J7120

== ENCOUNTER 2024-03-15 08:23 | Outpatient (CLI) | payer MEDICAID, SELFPAY | END 2024-03-15 08:24 | disposition home or self-care (01) | LOC: FRMREF 08:26 | PROVIDERS: PCP Physician Assistant Medical; Visit Provider Physician Assistant Medical | DX: N30.01 Acute cystitis with hematuria (principal) | CPT/HCPCS: 87086 ==

== ENCOUNTER 2024-04-18 10:15 | Outpatient (CLI) | payer MEDICAID, SELFPAY ==
[2024-04-25 15:27] LABS: Pap Test Reviewed by Path Done
== END 2024-04-18 10:16 | disposition home or self-care (01) ==
LOC: FRMREF 10:15
PROVIDERS: PCP Physician Assistant Medical; Visit Provider Physician Assistant Medical
DX: E03.8 Other specified hypothyroidism (principal); F41.9 Anxiety disorder, unspecified; F32.A Depression, unspecified; Z13.0 Encounter for screening for diseases of the blood and blood-forming organs and certain disorders involving the immune mechanism; Z11.51 Encounter for screening for human papillomavirus (HPV); Z13.6 Encounter for screening for cardiovascular disorders; Z12.4 Encounter for screening for malignant neoplasm of cervix
CPT/HCPCS: 80053; 80061; 84443; 88141; 88142

== ENCOUNTER 2024-12-05 11:24 | Outpatient (CLI) | payer MEDICAID, SELFPAY | END 2024-12-05 11:25 | disposition home or self-care (01) | PROVIDERS: PCP Physician Assistant Medical; Visit Provider Physician Assistant Medical | DX: N30.00 Acute cystitis without hematuria (principal); B96.20 Unspecified Escherichia coli [E. coli] as the cause of diseases classified elsewhere; Z13.228 Encounter for screening for other metabolic disorders; Z13.6 Encounter for screening for cardiovascular disorders; Z13.29 Encounter for screening for other suspected endocrine disorder | CPT/HCPCS: 80053; 80061; 84443; 87086 ==

== ENCOUNTER 2024-12-21 11:46 | Outpatient (CLI) | payer MEDICAID, SELFPAY | END 2024-12-21 11:47 | disposition home or self-care (01) | LOC: NFLDREF 12-26 13:39 | PROVIDERS: PCP Physician Assistant Medical; Referring Provider Physician Assistant Medical; Visit Provider Physician Assistant Medical | DX: N39.0 Urinary tract infection, site not specified (principal) | CPT/HCPCS: 87086 ==